=== PATIENT | female | born 1965 | race Caucasian/White ===

== ENCOUNTER 2016-12-28 12:35 | Emergency (ER) | payer OTHER ==
[~2016-12-28] VITALS: Ht 170.2 cm; Wt 174.7 kg
[~2016-12-28 12:35] MED LIST: CHANTIX1 MG PO; CITRATE OF MAG296 ML PO; CYCLOBENZAPRINE10 MG PO; DITROPAN5 MG PO; HYDROCODON-ACE1 EAC9 PO; LEVAQUIN500 MG PO; LISINOPRIL-HCT1 EAC3 PO; MELOXICAM15 MG PO; MOTRIN800 MG PO; NEXIUM 24HR20 M1 PO; OXYBUTYNIN CHLOR5 MG PO; PERCOCET 5/31 TABLET PO; REQUIP0.5 MG PO; TYLENOL ARTHRI650 MG PO; ULTRAM50 MG PO; ZOFRAN4 MG PO
[2016-12-28 19:19] VITALS: BP 142/71
== END 2016-12-28 19:20 | disposition home or self-care (01) ==
LOC: EME 12:35 → RME 12:35
DX: M71.22 Synovial cyst of popliteal space [Baker], left knee (principal); M25.462 Effusion, left knee; Z91.041 Radiographic dye allergy status; Z88.6 Allergy status to analgesic agent
CPT/HCPCS: 73564; 93971; 99281; 99284; J1885